=== PATIENT | male | born 1955 | race Caucasian/White ===

== ENCOUNTER 2016-07-28 07:29 | Day surgery (SDC) | payer BC ==
[2016-07-28] MEDS ORDERED: LIDOCAINE 2% MDV (20MG/ML) 20ML VIAL IV ONE (14:00)
[2016-07-28] MEDS ORDERED: MIDAZOLAM HCL 2MG/2ML VIAL IV ONE (14:00)
[2016-07-28] MEDS ORDERED: PROPOFOL 10 MG/ML VIAL IV ONE (14:00)
--- NOTE | 2016-08-02 10:00 | Operative Note ---
DATE OF SURGERY: REQUESTING PHYSICIAN: Patel Rock D.O. POSTOPERATIVE DIAGNOSIS: Normal colonic mucosa. OPERATION: COLONOSCOPY. Surgeon: Denys Veronica M.D. Indication for Procedure: This is a 61-year-old male with average risk for colorectal cancer who presented for screening colonoscopy. Sedation: Sedation was per Anesthesia. Pulse oximetry was monitored throughout the duration of the procedure to maintain O2 saturation of 90% or greater. Supplemental oxygen was administered via nasal cannula. Cardiac and vital signs were monitored throughout the duration of the procedure, and they were stable. Description of the procedure of colonoscopy and risks and benefits of the procedure including the risk of bleeding and perforation, among others, were explained to the patient who voiced understanding and agreed to have the procedure done. Physical exam was performed, and the patient was found stable for sedation. PROCEDURE: The patient was placed in the left lateral position and sedation was initiated. Digital rectal exam was performed and showed small external hemorrhoids with no palpable rectal masses. The Olympus PCF-180AL colonoscope was then inserted into the rectum under direct visualization and advanced to the cecum without difficulty. The ileocecal valve and appendiceal orifice were identified and photographed. The colonic mucosa was carefully examined upon insertion of the colonoscope. There were no lesions noted. The colonoscope was then withdrawn while carefully examining the colonic mucosal surfaces. There were no lesions. In the rectum, retroflexion was performed and grade 1 internal hemorrhoids were noted. The colonoscope was then withdrawn and the procedures were terminated. The patient tolerated the procedures well without immediate complications. He remained with stable vital signs and was transferred to the Recovery Room. PLAN AND RECOMMENDATIONS: 1. He is to be on a high-fiber diet. 2. He is to have a repeat colonoscopy for screening in 10 years. As always, thank you for allowing me to participate in the care of your patient. Denys Veronica MD CC: Cintia Cornejo
== END 2016-07-28 09:35 | disposition home or self-care (01) ==
LOC: HOP 07:29
PROVIDERS: ATTEND Internal Medicine Gastroenterology
DX: Z12.11 Encounter for screening for malignant neoplasm of colon (principal)